=== PATIENT | female | born 2000 | race American Indian/Alaskan Native ===

== ENCOUNTER 2019-11-09 02:05 | Emergency (ER) | payer MEDICAID, OTHER ==
[2019-11-09] MEDS ORDERED: Clindamycin HCl 150 MG Cap PO ONE (02:06)
[2019-11-09] MEDS ORDERED: Lidocaine 2% Viscous Solution 15 ML Cup PO ONE (02:06)
[2019-11-09 02:32] VITALS: BP 143/89; PULSE 97
--- NOTE | 2019-11-09 02:46 | EDM.PDOC ---
ED HPI GENERAL MEDICAL PROBLEM - General Chief Complaint: ENT Problem Stated Complaint: toothach mouth swelling Time Seen by Provider: 11/09/19 02:35 Source of Information: Reports: Patient History Limitations: Reports: No Limitations - History of Present Illness INITIAL COMMENTS - FREE TEXT/NARRATIVE: ED with c/o left face swollen increasing past 2 days, chills tonight. Cracked molar for a long time, getting bigger, Has not seen dentist. Last ibuprofen at 10am. Left Face/Facial Pain Score (Numeric/FACES): 10 - Related Data Allergies Allergy/AdvReac Type Severity Reaction Status Date / Time No Known Allergies Allergy Verified 11/09/19 02:27 Home Meds: Home Meds . 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 in March Psychiatric History: Reports: Addiction - Infectious Disease History Infectious Disease History: Reports: Hepatitis C - Past Surgical History Cardiovascular Surgical History: Reports: None Social & Family History - Family History Family Medical History: Noncontributory - Tobacco Use Smoking Status *Q: Never Smoker Second Hand Smoke Exposure: No - Caffeine Use Caffeine Use: Reports: None - Recreational Drug Use Recreational Drug Use: No ED ROS ENT - Review of Systems Review Of Systems: See Below ED EXAM, ENT - Physical Exam Exam: See Below Exam Limited By: No Limitations General Appearance: Alert, No Apparent Distress Eye Exam: Left Eye: Other (lower orbital swelling), Bilateral Eye: EOMI Ears: Hearing Grossly Normal Nose: Normal Inspection Mouth/Throat: Dental Abcess (left 2nd upper molar), Gum Swelling (left 2nd molar ) Head: Facial Swelling (left), Facial Tenderness Course - Vital Signs Last Recorded V/S: Last Vital Signs Temp 98 F 11/09/19 02:27 Pulse 97 11/09/19 02:27 Resp 16 11/09/19 02:27 BP 143/89 H 11/09/19 02:27 Pulse Ox 100 11/09/19 02:27 - Orders/Labs/Meds Meds: Medications Discontinued Medications Generic Name Dose Route Start Last Admin Trade Name Freq PRN Reason Stop Dose Admin Ceftriaxone Sodium 1 gm/ 0 gm 11/09/19 02:35 Lidocaine HCl 2.1 ml IM 11/09/19 02:36 ONETIME ONE Ibuprofen 600 mg 11/09/19 02:35 Motrin PO 11/09/19 02:36 ONETIME ONE Departure - Departure Time of Disposition: 02:46 Disposition: Home, Self-Care 01 Condition: Good Clinical Impression: Dental abscess - Discharge Information *PRESCRIPTION DRUG MONITORING PROGRAM REVIEWED*: No *COPY OF PRESCRIPTION DRUG MONITORING REPORT IN PATIENT GARETH: No Instructions: Dental Abscess, [id number] Additional Instructions: clindamycin 300mg 3 times daily x 7 days alternate ibuprofen 600mg and tylenol 650mg every 4 hours as needed for discomfort dentist later this morning viscous lidocaine, this layer around tooth area every hour as needed Sepsis Event Note - Evaluation Sepsis Screening Result: No Definite Risk - Focused Exam Vital Signs: Vital Signs Temp Pulse Resp BP Pulse Ox 11/09/19 02:27 98 F 97 16 143/89 H 100 Date Exam was Performed: 11/09/19 Time Exam was Performed: 02:41
[2019-11-09] MEDS: Ibuprofen 600 MG Tab PO ONE (02:48)
[2019-11-09] MEDS: cefTRIAXone 1 GM, Lidocaine 1% 2.1 ML IM ONE ×2 (02:48)
[2019-11-09] MEDS: Lidocaine 2% Viscous Solution 15 ML Cup ONE (02:49)
[2019-11-09] MEDS: Clindamycin HCl 150 MG Cap ONE (02:49)
== END 2019-11-09 03:04 | disposition home or self-care (01) ==
LOC: DL.ED 02:05
DX: K04.7 Periapical abscess without sinus (principal)
CPT/HCPCS: 96372; 99282; 99283; A9270-GY; J0696; J2001

== ENCOUNTER 2022-05-17 05:10 | Inpatient (IN) | payer MEDICAID ==
[2022-05-17] MEDS: Oxytocin/Normal Saline 30 UNIT/500 ML BAG IV SCH ×2 (05:13→06:15)
[2022-05-17] MEDS ORDERED: Simethicone 80 MG Tab.Chew PO PRN (05:31)
[2022-05-17] MEDS ORDERED: Tranexamic Acid 1,000 MG in Sodium Chloride 0.9% 100 ML IV PRN (05:31)
[2022-05-17] MEDS ORDERED: Acetaminophen 325 MG Tab PO PRN (05:31)
[2022-05-17] MEDS ORDERED: Sodium Chloride 0.9% 10 ML Syringe FLUSH PRN (05:31)
[2022-05-17] MEDS ORDERED: Carboprost Tromethamine 250 MCG/1 ML Amp IM PRN (05:31)
[2022-05-17] MEDS ORDERED: Benzocaine/Menthol 20%-0.5% Spray 78 GM Cannister TOP PRN (05:31)
[2022-05-17] MEDS ORDERED: Misoprostol 400 MCG (4 X 100 MCG TAB) RECTAL PRN (05:31)
[2022-05-17] MEDS: Prenatal Multivitamin with Calcium/Folic Acid/Iron Tab PO SCH (08:47)
[2022-05-17] MEDS: Ibuprofen 800 MG Tab PO PRN ×2 (08:47→20:34)
[2022-05-17] MEDS: Ferrous Sulfate 325 MG Tab PO SCH ×2 (08:47→20:33)
[2022-05-17] MEDS ORDERED: cefTRIAXone 500 MG in Sodium Chloride 0.9% 50 ML IV ONE (12:58)
[2022-05-17] MEDS: Docusate Sodium 100 MG Cap PO PRN (20:34)
[2022-05-18 08:29] VITALS: BP 127/66; PULSE 90
[2022-05-18] MEDS ORDERED: Diphtheria,Pertussis(Acell),Tetanus Vaccine 0.5 ML Syringe IM ONE (09:00)
[2022-05-18] MEDS ORDERED: Ciprofloxacin 500 MG Tab PO SCH (09:00)
[2022-05-18] MEDS ORDERED: Penicillin G Benzathine/Procaine 600-600 1.2 Millunits/2 ML Syringe IM ONE (09:52)
[2022-05-18] MEDS: Ibuprofen 800 MG Tab PO PRN (10:03)
[2022-05-18] MEDS: Ferrous Sulfate 325 MG Tab PO SCH (10:04)
[2022-05-18] MEDS: Docusate Sodium 100 MG Cap PO PRN (10:04)
[2022-05-18] MEDS: Prenatal Multivitamin with Calcium/Folic Acid/Iron Tab PO SCH (10:04)
[2022-05-18] MEDS ORDERED: Ciprofloxacin 500 MG Tab ONE (13:38)
[2022-05-18] MEDS ORDERED: Ciprofloxacin 500 MG Tab PO ONE (13:57)
== END 2022-05-18 13:58 | disposition home or self-care (01) | DRG 807 ==
LOC: DL.OB 05:10 → OBSVTOIN 05:10
PROVIDERS: ADMIT Family Medicine; ATTEND Family Medicine
PROC: 10E0XZZ Delivery of Products of Conception, External Approach (ICD-10-PCS; principal; 2022-05-17)
DX: O77.0 Labor and delivery complicated by meconium in amniotic fluid (principal); Z37.0 Single live birth; Z3A.37 37 weeks gestation of pregnancy; Z20.822 Contact with and (suspected) exposure to COVID-19
CPT/HCPCS: 36415; 59409; 85027; 90471; 90715; A9270-GY; J0558; J0696; J2590; U0002

== ENCOUNTER 2025-02-19 23:13 | Emergency (ER) | payer MEDICAID | END 2025-02-19 23:32 | disposition left against medical advice (07) | LOC: DL.ED 23:13 | DX: Z53.21 Procedure and treatment not carried out due to patient leaving prior to being seen by health care provider (principal) ==